=== PATIENT | male | born 1955 | race Caucasian/White ===

== ENCOUNTER 2016-10-12 13:30 | Day surgery (SDC) | payer MEDICARE, OTHER ==
[~2016-10-12] VITALS: Ht 167.6 cm; Wt 82.0 kg
[~2016-10-12 13:30] MED LIST: AMLO5TAB4 PO; ASPI-664 PO; INSU100C SC; LANT3I SC; LISI20TA11 PO; METO-429 PO; MEVA40 PO; PIOG45TA17 PO; SITA50TA2 PO
[2016-10-12 15:52] VITALS: Ht 167.6 cm; Wt 82.0 kg
[2016-10-12] MEDS ORDERED: PROPOFOL 20 ML ONE (16:06)
[2016-10-12] MEDS ORDERED: MIDAZOLAM 1 MG/ML 2 ML INJ ONE (16:06)
[2016-10-12] MEDS ORDERED: LIDOCAINE 2% (SDV) 5 ML INJ ONE (16:06)
[2016-10-12 16:19] VITALS: BP 141/70; PULSE 73; RESP 24
[2016-10-12 17:20] VITALS: BP 121/64; RESP 20
--- NOTE | 2016-10-16 09:42 | GILP ---
DATE OF PROCEDURE: 10/12/2016 PROCEDURE PERFORMED: Colonoscopy and biopsy. SURGEON: Vel Bolden MD. PREOP DIAGNOSIS: Positive occult blood in stool. POSTOP DIAGNOSES: 1. Colonoscopy all the way to the cecum. 2. Small sigmoid colon polyp was removed using the biopsy forceps. 3. Internal hemorrhoids. INDICATION: Mr. Neri Howard is a 61-year-old male patient was noted to have positive occult blood in stool. The patient was scheduled for colonoscopy. The procedure and possible complications were well explained to the patient. The patient understood and consented to the procedure. DESCRIPTION OF PROCEDURE: Under influence of anesthesia, the colonoscope was carefully introduced in the rectum. Under direct vision it was advanced all the way to the cecum. FINDINGS: There is small sigmoid colon polyp and it was removed using the biopsy forceps. He had internal hemorrhoids. He tolerated the procedure very well. There were no complications from the procedure. At the end of procedure he was awake with stable vital signs and he was discharged home to the care of his family. IMPRESSION: 1. Colonoscopy all the way to the cecum. 2. Small sigmoid colon polyp was removed using the biopsy forceps. 3. Internal hemorrhoids. PLAN: Next screening colonoscopy in 10 years. Dictated By: MD ROYAL Esparza/jw/luke /Document#: [id number]
== END 2016-10-12 21:38 | disposition home or self-care (01) ==
LOC: GIL 13:30
PROVIDERS: ATTEND Internal Medicine Gastroenterology
DX: K92.1 Melena (principal); D12.5 Benign neoplasm of sigmoid colon; K64.8 Other hemorrhoids; I10 Essential (primary) hypertension; E11.9 Type 2 diabetes mellitus without complications; E78.5 Hyperlipidemia, unspecified; E66.9 Obesity, unspecified; Z68.29 Body mass index [BMI] 29.0-29.9, adult
CPT/HCPCS: 45380; 82962; 88305; J2250

== ENCOUNTER 2018-01-19 10:57 | Inpatient (IN) | END 2018-01-20 19:39 | disposition home or self-care (01) | DRG 312 ==

== ENCOUNTER 2018-01-23 17:03 | Emergency (ER) | END 2018-01-23 21:19 | disposition home or self-care (01) ==